=== PATIENT | female | born 1975 | race Caucasian/White ===

== ENCOUNTER 2019-05-02 21:51 | Emergency (ER) | payer MEDICARE, OTHER ==
[~2019-05-02] VITALS: Ht 149.9 cm; Wt 59.0 kg
[2019-05-02 22:05] VITALS: BP 125/77
--- NOTE | 2019-05-02 22:08 | NUR ---
TO LOBBY A/W BED AMBULATORY
--- NOTE | 2019-05-02 22:21 | NUR ---
PT AMBULATED TO BED 09
--- NOTE | 2019-05-02 22:21 | NUR ---
43 Y/O FEMALE C/O ABDOMINAL PAIN RADIATING TO THE RIGHT FLANK AND BACK. PAIN IS A 9/10 ACUTE SHARP PAIN. ABDOMEN IS SOFT AND FLAT; PAIN UPON PALPATION OF THE RIGHT UPPER AREA TO THE RIGHT FLANK. PER PATIENT, "THIS HAS BEEN HURTNG FOR A MONTH NOW, BUT IT HURTS ESPECIALLY TODAY. ABDOMINAL SOUNDS HEARD ON ALL FOUR QUADRANTS. ERMD MADE AWARE OF STATUS. SIDE RAILSX1. PMH:DIABETES; ASTHMA RX: METFORMIN; INSULIN
[2019-05-02 23:01] LABS: APPEARANCE,URINE CLEAR (CLEAR); BILIRUBIN,URINE NEGATIVE (NEGATIVE); BLOOD, URINE NEGATIVE (NEGATIVE); COLOR,URINE YELLOW (YELLOW); LEUKOCYTE ESTERASE ,URINE NEGATIVE (NEGATIVE); NITRITE, URINE NEGATIVE (NEGATIVE); UGLUCOSE 3+ (NEGATIVE)
[2019-05-02 23:01] LABS: BASOPHILS % (AUTO) 0.3 % (0.0-2.0); EOSINOPHILS # (AUTO) 0.2 K/uL (0-0.4); EOSINOPHILS % (AUTO) 3.2 % (0.0-4.0); HEMATOCRIT 44.6 % (36-48); LYMPHOCYTES # (AUTO) 2.7 K/uL (2.5-16.5); LYMPHOCYTES % (AUTO) 46.6 % (20.5-51.1); MEAN CORPUSCULAR HEMOGLOBIN 31 pg (27-31); MEAN CORPUSCULAR HGB CONC 34 g/dL (33-37); MEAN CORPUSCULAR VOLUME 92.4 fL (80-94); MONOCYTES # (AUTO) 0.5 K/uL (0.8-1.0); MONOCYTES % (AUTO) 8.6 % (1.7-9.3); NEUTROPHILS # (AUTO) 2.4 K/uL (1.8-7.7); NEUTROPHILS % (AUTO) 41.3 % (42.2-75.2); PLATELET COUNT (AUTO) 185 K/uL (140-450); RED BLOOD CELL COUNT(AUTO) 4.83 MIL/uL (4.20-5.40); RED CELL DISTRIBUTION WIDTH 13.1 % (11.6-13.7); WHITE BLOOD COUNT (AUTO) 5.8 K/uL (4.8-10.8)
[2019-05-02 23:16] LABS: RBC,URINE 0-5 /HPF (0-5); WBC,URINE 0-5 /HPF (0-5)
[2019-05-02 23:16] LABS: ALBUMIN 3.6 g/dL (3.4-5.0); ANION GAP 9.9 (8-16); CARBON DIOXIDE 32.4 mmol/L (21-32); CREATININE 0.8 mg/dL (0.6-1.3); POTASSIUM 4.3 mmol/L (3.5-5.1); TOTAL BILIRUBIN 1.1 mg/dL (0.0-1.0)
[2019-05-02] MEDS ORDERED: KETOROLAC 30 MG/ML VIAL IVP ONE (23:20)
[2019-05-02] MEDS ORDERED: INSULIN REGULAR, HUMAN 100 UNIT/ML VIAL SUBQ ONE (23:20)
[2019-05-02] MEDS ORDERED: NACL 0.9% 1,000 ML IV ONE (23:20)
--- NOTE | 2019-05-02 23:47 | NUR ---
PT. TAKEN TO CT.
--- NOTE | 2019-05-03 00:02 | NUR ---
PT BACK FROM CT
--- NOTE | 2019-05-03 00:56 | NUR ---
BLOOD SUGAR 385 MG/DL. TAMMYD MADE AWARE.
[2019-05-03 01:18] VITALS: BP 121/79
--- NOTE | 2019-05-03 01:18 | NUR ---
SUSAN OKAY TO DISCHARGE PATIENT. EDUCATED PATIENT TO CONTINUE TO TAKE HOME MEDS; DIABETES MEDICATIONS. INSTRUCTED TO TAKE LACTULOSE. Patient discharged with v/s stable. Written and verbal after care instructions given and explained. Patient alert, oriented and verbalized understanding of instructions. Ambulatory with steady gait. All questions addressed prior to discharge. ID band removed. Patient advised to follow up with PMD. Rx of given. Patient educated on indication of medication including possible reaction and side effects. Opportunity to ask questions provided and answered.
== END 2019-05-03 01:18 | disposition home or self-care (01) ==
LOC: MED 21:51
DX: K59.00 Constipation, unspecified (principal); E11.65 Type 2 diabetes mellitus with hyperglycemia; K42.9 Umbilical hernia without obstruction or gangrene; J45.909 Unspecified asthma, uncomplicated; Z90.49 Acquired absence of other specified parts of digestive tract; Z87.442 Personal history of urinary calculi; Z88.5 Allergy status to narcotic agent; Z88.6 Allergy status to analgesic agent
CPT/HCPCS: 36415; 74176; 80053; 81001; 82948; 85025; 96361; 96372; 96374; 99284; J1815; J1885; J7030

== ENCOUNTER 2020-11-17 15:27 | Emergency (ER) | payer MEDICARE, OTHER ==
[~2020-11-17] VITALS: Ht 149.9 cm; Wt 59.0 kg
[2020-11-17 15:32] VITALS: BP 105/72
--- NOTE | 2020-11-17 15:44 | NUR ---
Pt ambulated to ER bed 7 with a steady gait.
--- NOTE | 2020-11-17 15:47 | NUR ---
45 Y/O FEMALE C/O ABSCESS TO BACK OF LEFT THIGH WITH PAIN 10/10 DESCRIBES BURNING AND SHARP RADIATING TO LEFT HIP X 4 DAYS. BLOOD SUGAR 442 AT THIS TIME. PT DENIES FEVER/CHILLS. DENIES N/V. PMH: DM, ASTHMA, HLD NKA
--- NOTE | 2020-11-17 15:57 | NUR ---
LOUISE Villalta at pt bedside for further evaluation.
[2020-11-17] MEDS ORDERED: KETOROLAC 30 MG/ML VIAL IM ONE (16:00)
[2020-11-17] MEDS ORDERED: LIDOCAINE MPF 1% 10 MG/ML VIAL INJ ONE (16:00)
[2020-11-17] MEDS ORDERED: IBUP-1842 PO (16:33)
[2020-11-17] MEDS ORDERED: CEPH500C16 PO (16:33)
[2020-11-17 16:52] VITALS: BP 105/72
--- NOTE | 2020-11-17 16:53 | NUR ---
Patient discharged with v/s stable. Written and verbal after care instructions given INCISION AND DRAINAGE AFTER CARE and explained. Patient alert, oriented and verbalized understanding of instructions. Ambulatory with steady gait. All questions addressed prior to discharge. ID band removed. Patient advised to follow up with PMD. Rx of KEFLEX 500MG PO QID PO DAILY FOR 7DAYS, AND MOTRIN 400MG PO QID PRN PAIN given. Patient educated on indication of medication including possible reaction and side effects. Opportunity to ask questions provided and answered.
== END 2020-11-17 16:53 | disposition home or self-care (01) ==
LOC: MERGE 15:27 → MED 15:27
DX: L02.416 Cutaneous abscess of left lower limb (principal); J45.909 Unspecified asthma, uncomplicated; E11.9 Type 2 diabetes mellitus without complications; K21.9 Gastro-esophageal reflux disease without esophagitis; E78.00 Pure hypercholesterolemia, unspecified; Z88.5 Allergy status to narcotic agent
CPT/HCPCS: 10060; 96372; 99284; J1885; J2001

== ENCOUNTER 2020-11-19 10:55 | Emergency (ER) | payer MEDICARE, OTHER ==
[~2020-11-19] VITALS: Ht 149.9 cm; Wt 59.0 kg
[~2020-11-19 10:55] MED LIST: CEPH500C16 PO; IBUP-1842 PO
[2020-11-19 11:07] VITALS: BP 118/59
--- NOTE | 2020-11-19 11:08 | NUR ---
PATIENT AMBULATED TO BED 12
--- NOTE | 2020-11-19 11:40 | NUR ---
45 Y/O FEMALE HERE FOR RECHECK. PT STATES SHE WAS SEEN X2DAYS AGO FOR I&D PROCEDURE ABOVE LEFT THIGH. PT STATES SHE HAS BEEN TAKING PRESCRIBED ABX AND PAIN MEDICATION, TODAY PAIN IS 9/10 DESCRIBES DULL AND CRAMPING INTERMITTENT. DENIES FEVER/CHILLS, DENIES N/V. PMH: ASTHMA, DM, HLD ALLERGIES: ACETAMINOPHEN, NORCO
[2020-11-19 12:12] VITALS: BP 118/59
--- NOTE | 2020-11-19 12:12 | NUR ---
Patient discharged with v/s stable. Written and verbal after care instructions given and explained. Patient verbalized understanding. Ambulatory with steady gait. All questions addressed prior to discharge. Advised to follow up with PMD.
== END 2020-11-19 12:12 | disposition home or self-care (01) ==
LOC: MED 10:55
DX: L02.416 Cutaneous abscess of left lower limb (principal); Z90.49 Acquired absence of other specified parts of digestive tract; Z98.890 Other specified postprocedural states; Z90.710 Acquired absence of both cervix and uterus; Z88.5 Allergy status to narcotic agent; Z88.6 Allergy status to analgesic agent
CPT/HCPCS: 99281

== ENCOUNTER 2020-11-22 09:40 | Emergency (ER) | payer MEDICARE, OTHER ==
[~2020-11-22] VITALS: Ht 149.9 cm; Wt 59.0 kg
[2020-11-22 09:51] VITALS: BP 92/70
== END 2020-11-22 11:16 | disposition home or self-care (01) ==
LOC: MED 09:40
DX: L02.416 Cutaneous abscess of left lower limb (principal); J45.909 Unspecified asthma, uncomplicated; E11.9 Type 2 diabetes mellitus without complications; I10 Essential (primary) hypertension; E78.5 Hyperlipidemia, unspecified; Z79.899 Other long term (current) drug therapy; Z88.5 Allergy status to narcotic agent; Z88.6 Allergy status to analgesic agent
CPT/HCPCS: 99281

== ENCOUNTER 2022-06-22 08:26 | Emergency (ER) | payer MEDICARE, OTHER ==
[~2022-06-22] VITALS: Ht 147.3 cm; Wt 61.2 kg
[2022-06-22 08:30] VITALS: BP 134/83
--- NOTE | 2022-06-22 08:40 | NUR ---
47F PRESENTS TO ED WITH C/O RIGHT ARM, RIGHT CHEST, AND RIGHT UPPER BACK PAIN X4 DAYS. PT REPORTS A CONSTANT RIGHT UPPER BACK 9/10 PAIN RADIATING TO RIGHT SIDE OF CHEST. PT DENIES TRAUMA/INJURY, REPORTS SHE WAS GETTING OUT OF THE SHOWER 4 DAYS AGO WHEN SHE HEARD A "POP." PT REPORTS TAKING NAPROXEN AND ML-PRIM WITH NO RELIEF, DENIES TAKING TODAY. PT HAS LIMITED ROM OF RIGHT ARM UPON ASSESSMENT.
[2022-06-22] MEDS ORDERED: KETOROLAC 30 MG/ML VIAL IM ONE (08:55)
--- NOTE | 2022-06-22 08:59 | NUR ---
PT TAKEN TO XRAY VIA W/C.
[2022-06-22] MEDS ORDERED: CYCL-711 PO (09:26)
[2022-06-22] MEDS ORDERED: LID5T TP (09:26)
--- NOTE | 2022-06-22 09:42 | NUR ---
Patient discharged with v/s stable. Written and verbal after care instructions ABOUT SHOULDER IMPINGEMENT SYNDROME given and explained. Patient alert, oriented and verbalized understanding of instructions. Ambulatory with steady gait. All questions addressed prior to discharge. ID band removed. Patient advised to follow up with PMD. Rx of FLEXERIL AND LIDOCAINE PATCH given. Patient educated on indication of medication including possible reaction and side effects. Opportunity to ask questions provided and answered.
--- NOTE | 2022-06-22 10:00 | NUR ---
Poncho ortiz in [facility] - 06/22/22 at 1003 by RICHARD SWABS COLLECTED AND WALKED TO LAB.
== END 2022-06-22 09:42 | disposition home or self-care (01) ==
LOC: MED 08:26
DX: S46.811A Strain of other muscles, fascia and tendons at shoulder and upper arm level, right arm, initial encounter (principal); J45.909 Unspecified asthma, uncomplicated; I10 Essential (primary) hypertension; E11.9 Type 2 diabetes mellitus without complications; Z88.5 Allergy status to narcotic agent; Z88.6 Allergy status to analgesic agent; Z79.899 Other long term (current) drug therapy; X58.XXXA Exposure to other specified factors, initial encounter; Y93.89 Activity, other specified; Y92.89 Other specified places as the place of occurrence of the external cause; Y99.8 Other external cause status
CPT/HCPCS: 71045; 73030; 96372; 99284; J1885

== ENCOUNTER 2023-02-10 15:45 | Inpatient (IN) | payer MEDICARE, OTHER ==
[~2023-02-10] VITALS: Ht 180.3 cm; Wt 60.0 kg
[~2023-02-10 15:45] MED LIST changes: +ACET-10509 PO; +CYCL-711 PO; +LID5T TP; +ONDA-188 SL
[2023-02-10 15:56] VITALS: BP 130/76; PULSE 101; RESP 17; TEMP 97.8; O2SAT 98
[2023-02-10] MEDS ORDERED: NACL 0.9% 1,000 ML IV ONE (16:50)
[2023-02-10] MEDS ORDERED: METOCLOPRAMIDE 10 MG/2 ML INJ VIAL IVP ONE (16:50)
[2023-02-10] MEDS ORDERED: PANTOPRAZOLE 40 MG INJ VIAL IVP ONE (17:00)
[2023-02-10 18:02] LABS: ALBUMIN 3.9 g/dL (3.4-5.0); ANION GAP 14.3 (8-16); CALCIUM 9.5 mg/dL (8.5-10.1); CARBON DIOXIDE 29.4 mmol/L (21-32); CREATININE 0.7 mg/dL (0.6-1.3); POTASSIUM 4.7 mmol/L (3.5-5.1); TOTAL BILIRUBIN 2.5 mg/dL (0.0-1.0); TOTAL PROTEIN, SERUM 7.3 g/dL (6.4-8.2)
[2023-02-10 18:42] LABS: APPEARANCE,URINE CLEAR (CLEAR); BILIRUBIN,URINE 1+ (NEGATIVE); BLOOD, URINE NEGATIVE (NEGATIVE); COLOR,URINE YELLOW (YELLOW); LEUKOCYTE ESTERASE ,URINE TRACE (NEGATIVE); NITRITE, URINE NEGATIVE (NEGATIVE); PH,URINE 7.5 (5.0-9.0); PROTEIN,URINE 2+ (NEGATIVE); UGLUCOSE NEGATIVE (NEGATIVE)
[2023-02-10 18:48] LABS: BACTERIA,URINE 0-2 /HPF (None Seen); MUCUS,URINE None Seen /LPF (None Seen); RBC,URINE 0-5 /HPF (0-5); SQUAMOUS EPITHELIAL CELL,UR 0-3 (FEW) /LPF (0-3 (FEW)); WBC,URINE 0-5 /HPF (0-5); YEAST,URINE None Seen /HPF (None Seen)
[2023-02-10 18:49] LABS: ICTOTEST NEGATIVE (NEGATIVE)
[2023-02-10] MEDS ORDERED: ONDANSETRON 4 MG/2 ML VIAL IVP ONE (19:15)
[2023-02-10] MEDS ORDERED: cefTRIAXone 1,000 MG VIAL ONE (20:19)
[2023-02-10 21:07] LABS: BASOPHILS % (AUTO) 0.2 % (0.0-2.0); EOSINOPHILS % (AUTO) 0.3 % (0.0-4.0); HEMATOCRIT 44.7 % (36-48); HEMOGLOBIN 15.1 g/dL (12.0-16.0); LYMPHOCYTES # (AUTO) 0.9 K/uL (2.5-16.5); LYMPHOCYTES % (AUTO) 13.8 % (20.5-51.1); MEAN CORPUSCULAR HEMOGLOBIN 31 pg (27-31); MEAN CORPUSCULAR HGB CONC 34 g/dL (33-37); MEAN CORPUSCULAR VOLUME 90.6 fL (80-94); MONOCYTES # (AUTO) 0.3 K/uL (0.8-1.0); MONOCYTES % (AUTO) 4.4 % (1.7-9.3); NEUTROPHILS # (AUTO) 5.4 K/uL (1.8-7.7); NEUTROPHILS % (AUTO) 81.3 % (42.2-75.2); PLATELET COUNT (AUTO) 194 K/uL (140-450); RED BLOOD CELL COUNT(AUTO) 4.93 MIL/uL (4.20-5.40); RED CELL DISTRIBUTION WIDTH 12.8 % (11.6-13.7); WHITE BLOOD COUNT (AUTO) 6.6 K/uL (4.8-10.8)
[2023-02-10] MEDS ORDERED: POTASSIUM CHLORIDE 10 MEQ TABER PO PRN (21:10)
[2023-02-10] MEDS ORDERED: HYDROcodone/APAP 5/325 MG 1 TAB TAB PO PRN (21:10)
[2023-02-10] MEDS ORDERED: KCL 20 MEQ IN 100 mL PREMIX 200 ML IV PRN (21:10)
[2023-02-10] MEDS ORDERED: MAG SULF 2000 MG/WATER PREMIX 50 ML IV PRN (21:10)
[2023-02-10] MEDS ORDERED: MAGNESIUM OXIDE 400 MG TAB PO PRN (21:10)
[2023-02-10] MEDS ORDERED: HYDR-4004 PO (21:37)
[2023-02-10] MEDS ORDERED: NOVR SUBQ (21:37)
[2023-02-10] MEDS ORDERED: METF-346 PO (21:37)
[2023-02-10] MEDS ORDERED: ASPI-1822 PO (21:37)
[2023-02-10 22:50] VITALS: BP 144/95; PULSE 100; PULSE 116; PULSE 88; RESP 18; TEMP 98; O2SAT 98
[2023-02-10 23:54] VITALS: PULSE 102
[2023-02-11] MEDS: NACL 0.9% 1,000 ML IV SCH ×3 (00:57→22:28)
[2023-02-11] MEDS: ONDANSETRON 4 MG/2 ML VIAL IVP PRN ×2 (01:19→08:48)
[2023-02-11 03:53] VITALS: PULSE 108
[2023-02-11 04:00] VITALS: BP 119/58; PULSE 105; RESP 18; TEMP 98.5; O2SAT 97
[2023-02-11] MEDS: METOCLOPRAMIDE 10 MG/2 ML INJ VIAL IVP PRN ×2 (04:33→17:44)
[2023-02-11 05:12] LABS: BASOPHILS % (AUTO) 0.1 % (0.0-2.0); EOSINOPHILS % (AUTO) 0.1 % (0.0-4.0); HEMATOCRIT 39.3 % (36-48); HEMOGLOBIN 13.5 g/dL (12.0-16.0); LYMPHOCYTES # (AUTO) 1.5 K/uL (2.5-16.5); LYMPHOCYTES % (AUTO) 20.7 % (20.5-51.1); MEAN CORPUSCULAR HEMOGLOBIN 31 pg (27-31); MEAN CORPUSCULAR HGB CONC 34 g/dL (33-37); MEAN CORPUSCULAR VOLUME 90.5 fL (80-94); MONOCYTES # (AUTO) 0.5 K/uL (0.8-1.0); MONOCYTES % (AUTO) 7.2 % (1.7-9.3); NEUTROPHILS # (AUTO) 5.1 K/uL (1.8-7.7); NEUTROPHILS % (AUTO) 71.9 % (42.2-75.2); PLATELET COUNT (AUTO) 200 K/uL (140-450); RED BLOOD CELL COUNT(AUTO) 4.34 MIL/uL (4.20-5.40); RED CELL DISTRIBUTION WIDTH 12.8 % (11.6-13.7); WHITE BLOOD COUNT (AUTO) 7.1 K/uL (4.8-10.8)
[2023-02-11 05:16] LABS: MAGNESIUM 1.6 mg/dL (1.8-2.4); PHOSPHORUS 3.6 mg/dL (2.5-4.9)
[2023-02-11 05:39] LABS: ANION GAP 12.5 (8-16); CALCIUM 8.6 mg/dL (8.5-10.1); CARBON DIOXIDE 26.2 mmol/L (21-32); CREATININE 0.5 mg/dL (0.6-1.3); POTASSIUM 3.7 mmol/L (3.5-5.1)
[2023-02-11 08:00] VITALS: BP 112/69; PULSE 104; PULSE 105; RESP 17; TEMP 98.4; O2SAT 97
[2023-02-11] MEDS: DOCUSATE SODIUM 100 MG GELCAP PO SCH (09:00)
[2023-02-11 12:00] VITALS: BP 107/63; PULSE 92; RESP 17; TEMP 98.6; O2SAT 97
[2023-02-11] MEDS: ACETAMINOPHEN 325 MG TAB PO PRN (13:00)
[2023-02-11] MEDS ORDERED: INSULIN LISPRO SLIDING SCALE 100 UNITS/ML VIAL SUBQ PRN (14:00)
[2023-02-11] MEDS ORDERED: DEXTROSE 50% 50 ML SYR IVP PRN (14:00)
[2023-02-11] MEDS: INSULIN LANTUS 100 UNITS/ML 10 ML VIAL SUBQ SCH (15:06)
[2023-02-11 16:00] VITALS: BP 115/66; PULSE 83; PULSE 97; RESP 17; TEMP 98.7; O2SAT 98
[2023-02-11] MEDS: BLOOD GLUCOSE MONITORING 1 DEV DEV FS SCH ×2 (17:13→20:43)
[2023-02-11 20:00] VITALS: BP 102/54; PULSE 84; PULSE 97; RESP 18; TEMP 98; O2SAT 97
[2023-02-11] MEDS: LACTULOSE 20 GM/30 ML UDC PO SCH (20:48)
[2023-02-12] MEDS: ONDANSETRON 4 MG/2 ML VIAL IVP PRN (04:25)
[2023-02-12 05:29] LABS: ANION GAP 9.6 (8-16); CALCIUM 8.1 mg/dL (8.5-10.1); CREATININE 0.4 mg/dL (0.6-1.3); POTASSIUM 3.6 mmol/L (3.5-5.1)
[2023-02-12 05:31] LABS: BASOPHILS % (AUTO) 0.3 % (0.0-2.0); EOSINOPHILS # (AUTO) 0.1 K/uL (0-0.4); HEMATOCRIT 37.2 % (36-48); HEMOGLOBIN 12.8 g/dL (12.0-16.0); LYMPHOCYTES # (AUTO) 1.7 K/uL (2.5-16.5); LYMPHOCYTES % (AUTO) 37.9 % (20.5-51.1); MEAN CORPUSCULAR HEMOGLOBIN 31 pg (27-31); MEAN CORPUSCULAR HGB CONC 35 g/dL (33-37); MEAN CORPUSCULAR VOLUME 90.4 fL (80-94); MONOCYTES # (AUTO) 0.4 K/uL (0.8-1.0); MONOCYTES % (AUTO) 9.1 % (1.7-9.3); NEUTROPHILS # (AUTO) 2.3 K/uL (1.8-7.7); NEUTROPHILS % (AUTO) 50.7 % (42.2-75.2); PLATELET COUNT (AUTO) 160 K/uL (140-450); RED BLOOD CELL COUNT(AUTO) 4.11 MIL/uL (4.20-5.40); RED CELL DISTRIBUTION WIDTH 12.5 % (11.6-13.7); WHITE BLOOD COUNT (AUTO) 4.6 K/uL (4.8-10.8)
[2023-02-12 05:38] LABS: PHOSPHORUS 2.6 mg/dL (2.5-4.9)
[2023-02-12] MEDS: BLOOD GLUCOSE MONITORING 1 DEV DEV FS SCH ×4 (06:31→21:23)
[2023-02-12 08:00] VITALS: BP 127/80; PULSE 82; RESP 17; TEMP 98.7; O2SAT 96
[2023-02-12 08:04] VITALS: PULSE 91; RESP 20; O2SAT 97
[2023-02-12] MEDS: LACTULOSE 20 GM/30 ML UDC PO SCH ×2 (09:40→21:24)
[2023-02-12] MEDS: DOCUSATE SODIUM 100 MG GELCAP PO SCH (09:40)
[2023-02-12] MEDS: INSULIN LANTUS 100 UNITS/ML 10 ML VIAL SUBQ SCH (09:43)
[2023-02-12] MEDS: NACL 0.9% 1,000 ML IV SCH (10:40)
[2023-02-12 16:00] VITALS: BP 118/73; PULSE 80; RESP 18; TEMP 97.3; O2SAT 95
[2023-02-12 20:00] VITALS: PULSE 82; RESP 18; O2SAT 98
[2023-02-13] VITALS: BP 123/85; PULSE 84; RESP 18; TEMP 98; O2SAT 97
[2023-02-13 05:00] LABS: BASOPHILS % (AUTO) 0.3 % (0.0-2.0); EOSINOPHILS # (AUTO) 0.1 K/uL (0-0.4); HEMATOCRIT 37.4 % (36-48); HEMOGLOBIN 12.9 g/dL (12.0-16.0); LYMPHOCYTES # (AUTO) 2.1 K/uL (2.5-16.5); LYMPHOCYTES % (AUTO) 45.2 % (20.5-51.1); MEAN CORPUSCULAR HEMOGLOBIN 31 pg (27-31); MEAN CORPUSCULAR HGB CONC 34 g/dL (33-37); MONOCYTES # (AUTO) 0.4 K/uL (0.8-1.0); MONOCYTES % (AUTO) 9.5 % (1.7-9.3); PLATELET COUNT (AUTO) 173 K/uL (140-450); RED CELL DISTRIBUTION WIDTH 12.8 % (11.6-13.7); WHITE BLOOD COUNT (AUTO) 4.7 K/uL (4.8-10.8)
[2023-02-13 05:20] LABS: ANION GAP 10.3 (8-16); CALCIUM 8.5 mg/dL (8.5-10.1); CARBON DIOXIDE 26.5 mmol/L (21-32); CREATININE 0.5 mg/dL (0.6-1.3); POTASSIUM 3.8 mmol/L (3.5-5.1)
[2023-02-13 05:25] LABS: MAGNESIUM 1.8 mg/dL (1.8-2.4); PHOSPHORUS 3.3 mg/dL (2.5-4.9)
[2023-02-13] MEDS: ACETAMINOPHEN 325 MG TAB PO PRN (06:33)
[2023-02-13] MEDS: NACL 0.9% 1,000 ML IV SCH ×2 (06:34→11:40)
[2023-02-13] MEDS: BLOOD GLUCOSE MONITORING 1 DEV DEV FS SCH ×2 (06:36→11:03)
[2023-02-13 08:00] VITALS: BP 121/76; PULSE 82; RESP 17; RESP 20; TEMP 97.3; O2SAT 97
[2023-02-13] MEDS: LACTULOSE 20 GM/30 ML UDC PO SCH (08:53)
[2023-02-13] MEDS: DOCUSATE SODIUM 100 MG GELCAP PO SCH (08:53)
[2023-02-13] MEDS: INSULIN LANTUS 100 UNITS/ML 10 ML VIAL SUBQ SCH (09:17)
[2023-02-13] MEDS ORDERED: INSU10SU6 SUBQ (13:07)
[2023-02-13] MEDS ORDERED: ONDA-188 PO (13:07)
[2023-02-13] MEDS ORDERED: LACT-85 PO (13:10)
== END 2023-02-13 14:25 | disposition home or self-care (01) | DRG 690 ==
LOC: MED 15:45 → MTU 21:13 → OBSVTOIN 02-12 11:34
PROVIDERS: ADMIT Student in an Organized Health Care Education/Training Program; ATTEND Student in an Organized Health Care Education/Training Program
DX: N39.0 Urinary tract infection, site not specified (principal); E87.20 Acidosis, unspecified; D84.9 Immunodeficiency, unspecified; K59.00 Constipation, unspecified; J45.909 Unspecified asthma, uncomplicated; E11.65 Type 2 diabetes mellitus with hyperglycemia; E86.1 Hypovolemia; Z88.6 Allergy status to analgesic agent; Z88.5 Allergy status to narcotic agent; Z79.899 Other long term (current) drug therapy
CPT/HCPCS: 96361; 96365; 96375; 99285; G0378; 36415; 80048; 80053; 81001; 82009; 82948; 83690; 83735; 84100; 85025; 87081; C9113; J0696; J1644; J1815; J2405; J2765; J3475

== ENCOUNTER 2023-02-20 13:21 | Observation (INO) | payer MEDICARE, OTHER ==
[~2023-02-20] VITALS: Ht 149.9 cm; Wt 59.0 kg
[~2023-02-20 13:21] MED LIST changes: -ACET-10509 PO; +ASPI-1822 PO; -CEPH500C16 PO; -CYCL-711 PO; +HYDR-4004 PO; -IBUP-1842 PO; +INSU10SU6 SUBQ; +LACT-85 PO; -LID5T TP; +METF-346 PO; +ONDA-188 PO; -ONDA-188 SL
[2023-02-20 13:27] VITALS: BP 129/80; PULSE 98; RESP 14; TEMP 98.1; O2SAT 99
[2023-02-20] MEDS ORDERED: ONDANSETRON 4 MG ODT PO ONE (14:15)
[2023-02-20] MEDS ORDERED: NACL 0.9% 1,000 ML IV ONE ×2 (14:40→15:35)
[2023-02-20] MEDS ORDERED: METOCLOPRAMIDE 10 MG/2 ML INJ VIAL IVP ONE (15:35)
[2023-02-20 16:03] LABS: BASOPHILS % (AUTO) 0.1 % (0.0-2.0); EOSINOPHILS % (AUTO) 0.2 % (0.0-4.0); HEMATOCRIT 48.1 % (36-48); HEMOGLOBIN 16.3 g/dL (12.0-16.0); LYMPHOCYTES % (AUTO) 13.8 % (20.5-51.1); MEAN CORPUSCULAR HEMOGLOBIN 31 pg (27-31); MEAN CORPUSCULAR HGB CONC 34 g/dL (33-37); MEAN CORPUSCULAR VOLUME 90.9 fL (80-94); MONOCYTES # (AUTO) 0.2 K/uL (0.8-1.0); MONOCYTES % (AUTO) 3.4 % (1.7-9.3); NEUTROPHILS % (AUTO) 82.5 % (42.2-75.2); PLATELET COUNT (AUTO) 258 K/uL (140-450); RED BLOOD CELL COUNT(AUTO) 5.29 MIL/uL (4.20-5.40); RED CELL DISTRIBUTION WIDTH 13.3 % (11.6-13.7); WHITE BLOOD COUNT (AUTO) 7.2 K/uL (4.8-10.8)
[2023-02-20 16:42] LABS: ALANINE AMINOTRANSFERASE 59 U/L (12-78); ALBUMIN 4.4 g/dL (3.4-5.0); ALKALINE PHOSPHATASE 93 U/L (50-136); ANION GAP 17.3 (8-16); ASPARTATE AMINOTRANSFERASE 41 U/L (15-37); CALCIUM 10.3 mg/dL (8.5-10.1); CARBON DIOXIDE 25.6 mmol/L (21-32); CHLORIDE 101 mmol/L (98-107); CREATININE 0.8 mg/dL (0.6-1.3); GFR ARICAN-AMERICAN 98 mL/min (>90); GFR NON ARICAN-AMERICAN 81 mL/min (>90); GLUCOSE 238 mg/dL (74-106); LIPASE 242 U/L (73-393); POTASSIUM 3.9 mmol/L (3.5-5.1); SODIUM SERUM 140 mmol/L (136-145); TOTAL BILIRUBIN 2.1 mg/dL (0.0-1.0); TOTAL PROTEIN, SERUM 8.6 g/dL (6.4-8.2); UREA NITROGEN, BLOOD 13 mg/dL (7-18)
[2023-02-20 18:25] LABS: APPEARANCE,URINE SL CLOUDY (CLEAR); BILIRUBIN,URINE 1+ (NEGATIVE); BLOOD, URINE NEGATIVE (NEGATIVE); COLOR,URINE YELLOW (YELLOW); LEUKOCYTE ESTERASE ,URINE TRACE (NEGATIVE); NITRITE, URINE NEGATIVE (NEGATIVE); PROTEIN,URINE 2+ (NEGATIVE); UGLUCOSE TRACE (NEGATIVE)
[2023-02-20 18:40] LABS: BACTERIA,URINE 1+ /HPF (None Seen); SQUAMOUS EPITHELIAL CELL,UR 4-10 (MOD) /LPF (0-3 (FEW)); WBC,URINE 0-5 /HPF (0-5)
[2023-02-20] MEDS ORDERED: ONDA-188 PO (18:53)
[2023-02-20] MEDS ORDERED: ONDANSETRON 4 MG/2 ML VIAL IVP ONE ×2 (18:55→22:10)
[2023-02-20 19:45] VITALS: O2SAT 95
[2023-02-20 21:40] LABS: BLOOD GAS PH 7.392 (7.35-7.45)
[2023-02-20 21:41] LABS: BLOOD GAS BASE EXCESS -3.1 mmol/L (-2.0-2.0); BLOOD GAS HCO3 21.2 mmol/L (22-26); BLOOD GAS PCO2 35.7 mmHg (35-45); BLOOD GAS PO2 74.3 mmHg (75-100)
[2023-02-20 21:45] VITALS: O2SAT 95
[2023-02-20] MEDS ORDERED: ACETAMINOPHEN 325 MG TAB PO PRN (22:25)
[2023-02-20] MEDS ORDERED: ZOLPIDEM 5 MG TAB PO PRN (22:25)
[2023-02-20] MEDS ORDERED: HYDROcodone/APAP 5/325 MG 1 TAB TAB PO PRN (22:25)
[2023-02-20] MEDS ORDERED: LORazepam 1 MG TAB PO PRN (22:25)
[2023-02-20] MEDS ORDERED: MAGNESIUM OXIDE 400 MG TAB PO PRN (22:25)
[2023-02-20] MEDS ORDERED: ONDANSETRON 4 MG/2 ML VIAL IVP PRN (22:25)
[2023-02-20] MEDS ORDERED: POTASSIUM CHLORIDE 10 MEQ TABER PO PRN (22:25)
[2023-02-20] MEDS ORDERED: KCL 20 MEQ IN 100 mL PREMIX 200 ML IV PRN (22:25)
[2023-02-20] MEDS ORDERED: MAG SULF 2000 MG/WATER PREMIX 50 ML IV PRN (22:25)
[2023-02-20] MEDS ORDERED: INSULIN LISPRO SLIDING SCALE 100 UNITS/ML VIAL SUBQ PRN (22:35)
[2023-02-20] MEDS ORDERED: INSULIN LANTUS 100 UNITS/ML 10 ML VIAL SUBQ SCH (22:35)
[2023-02-20] MEDS ORDERED: DEXTROSE 50% 50 ML SYR IVP PRN (22:35)
[2023-02-20 23:09] VITALS: BP 117/52; PULSE 112; PULSE 114; RESP 18; TEMP 97.7; O2SAT 96
[2023-02-21] MEDS: POTASSIUM CHL 20 MEQ/NACL 0.9% 1,000 ML IV SCH ×3 (01:30→14:10)
[2023-02-21 04:00] VITALS: BP 107/51; PULSE 101; PULSE 106; RESP 18; TEMP 98.8; O2SAT 96
[2023-02-21 06:41] LABS: ALBUMIN 3.3 g/dL (3.4-5.0); ANION GAP 12.8 (8-16); CALCIUM 8.6 mg/dL (8.5-10.1); CREATININE 0.6 mg/dL (0.6-1.3); MAGNESIUM 1.8 mg/dL (1.8-2.4); POTASSIUM 3.8 mmol/L (3.5-5.1); TOTAL BILIRUBIN 1.6 mg/dL (0.0-1.0); TOTAL PROTEIN, SERUM 6.4 g/dL (6.4-8.2)
[2023-02-21 06:45] LABS: BASOPHILS % (AUTO) 0.3 % (0.0-2.0); EOSINOPHILS % (AUTO) 0.1 % (0.0-4.0); HEMATOCRIT 38.2 % (36-48); HEMOGLOBIN 12.9 g/dL (12.0-16.0); LYMPHOCYTES # (AUTO) 1.1 K/uL (2.5-16.5); LYMPHOCYTES % (AUTO) 18.1 % (20.5-51.1); MEAN CORPUSCULAR HEMOGLOBIN 31 pg (27-31); MEAN CORPUSCULAR HGB CONC 34 g/dL (33-37); MEAN CORPUSCULAR VOLUME 90.2 fL (80-94); MONOCYTES # (AUTO) 0.6 K/uL (0.8-1.0); MONOCYTES % (AUTO) 9.5 % (1.7-9.3); NEUTROPHILS # (AUTO) 4.5 K/uL (1.8-7.7); PLATELET COUNT (AUTO) 214 K/uL (140-450); RED BLOOD CELL COUNT(AUTO) 4.23 MIL/uL (4.20-5.40); RED CELL DISTRIBUTION WIDTH 13.3 % (11.6-13.7); WHITE BLOOD COUNT (AUTO) 6.3 K/uL (4.8-10.8)
[2023-02-21] MEDS: BLOOD GLUCOSE MONITORING 1 DEV DEV FS SCH ×3 (06:49→16:05)
[2023-02-21 08:00] VITALS: BP 132/65; PULSE 101; PULSE 95; RESP 18; TEMP 97.7; O2SAT 100; O2SAT 96
[2023-02-21] MEDS ORDERED: PROCHLORPERAZINE 10 MG/2 ML VIAL IVP PRN (08:50)
[2023-02-21] MEDS ORDERED: ENOXAPARIN 40 MG/0.4 ML SYR SUBQ SCH (09:00)
[2023-02-21] MEDS ORDERED: DOCUSATE SODIUM 100 MG GELCAP PO SCH (09:00)
[2023-02-21] MEDS ORDERED: PANTOPRAZOLE 40 MG INJ VIAL IVP SCH ×2 (09:00→10:32)
[2023-02-21] MEDS ORDERED: ASPIRIN 81 MG TAB.CHEW PO SCH (09:00)
[2023-02-21 11:48] VITALS: O2SAT 98
[2023-02-21 12:00] VITALS: BP 110/61; PULSE 81; PULSE 83; RESP 18; TEMP 98.1; O2SAT 98
[2023-02-21] MEDS ORDERED: PROCHLORPERAZINE 10 MG/2 ML VIAL IVP SCH (12:00)
[2023-02-21 16:00] VITALS: BP 108/54; PULSE 83; PULSE 87; RESP 18; TEMP 98.8; O2SAT 99
[2023-02-21] MEDS ORDERED: PROC-87 PO (16:19)
[2023-02-21] MEDS ORDERED: PANT20EC18 PO (16:19)
[2023-02-21 16:36] VITALS: BP 108/54; PULSE 83; RESP 18; TEMP 98.8
== END 2023-02-21 17:15 | disposition home or self-care (01) ==
LOC: MED 13:21 → MTU 22:32
PROVIDERS: ADMIT Internal Medicine; ATTEND Internal Medicine
DX: R11.2 Nausea with vomiting, unspecified (principal); R10.9 Unspecified abdominal pain; E86.0 Dehydration; J45.909 Unspecified asthma, uncomplicated; E11.65 Type 2 diabetes mellitus with hyperglycemia; E83.52 Hypercalcemia; R74.01 Elevation of levels of liver transaminase levels; E80.6 Other disorders of bilirubin metabolism; Z85.42 Personal history of malignant neoplasm of other parts of uterus; Z79.899 Other long term (current) drug therapy
CPT/HCPCS: 36415; 36600; 71045; 74150; 80053; 81001; 82009; 82803; 82948; 83690; 83735; 84484; 84703; 85025; 87081; 93005; 94760; 96361; 96372; 96374; 96375; 96376; 99285; C9113; G0378; J0780; J1650; J1815; J2405; J2765; J7030; Q0162

== ENCOUNTER 2023-02-27 10:48 | Inpatient (IN) | payer MEDICARE, OTHER ==
[~2023-02-27] VITALS: Ht 149.9 cm; Wt 100.7 kg
[~2023-02-27 10:48] MED LIST changes: -HYDR-4004 PO; -ONDA-188 PO; +PANT20EC18 PO; +PROC-87 PO
[2023-02-27 10:59] VITALS: BP 137/83; PULSE 98; RESP 16; TEMP 97; O2SAT 99
[2023-02-27] MEDS ORDERED: KETOROLAC 30 MG/ML VIAL IVP ONE (11:50)
[2023-02-27] MEDS ORDERED: ONDANSETRON 4 MG/2 ML VIAL IVP ONE ×2 (11:50→16:55)
[2023-02-27] MEDS ORDERED: PANTOPRAZOLE 40 MG INJ VIAL IVP ONE (11:50)
[2023-02-27 12:24] LABS: BASOPHILS % (AUTO) 0.2 % (0.0-2.0); EOSINOPHILS % (AUTO) 0.2 % (0.0-4.0); HEMATOCRIT 45.9 % (36-48); HEMOGLOBIN 15.9 g/dL (12.0-16.0); LYMPHOCYTES # (AUTO) 1.5 K/uL (2.5-16.5); LYMPHOCYTES % (AUTO) 19.9 % (20.5-51.1); MEAN CORPUSCULAR HEMOGLOBIN 31 pg (27-31); MEAN CORPUSCULAR HGB CONC 35 g/dL (33-37); MEAN CORPUSCULAR VOLUME 89.7 fL (80-94); MONOCYTES # (AUTO) 0.7 K/uL (0.8-1.0); MONOCYTES % (AUTO) 9.4 % (1.7-9.3); NEUTROPHILS # (AUTO) 5.2 K/uL (1.8-7.7); NEUTROPHILS % (AUTO) 70.3 % (42.2-75.2); PLATELET COUNT (AUTO) 295 K/uL (140-450); RED BLOOD CELL COUNT(AUTO) 5.11 MIL/uL (4.20-5.40); RED CELL DISTRIBUTION WIDTH 13.3 % (11.6-13.7); WHITE BLOOD COUNT (AUTO) 7.4 K/uL (4.8-10.8)
[2023-02-27 12:39] LABS: APPEARANCE,URINE CLEAR (CLEAR); BILIRUBIN,URINE NEGATIVE (NEGATIVE); BLOOD, URINE NEGATIVE (NEGATIVE); COLOR,URINE YELLOW (YELLOW); LEUKOCYTE ESTERASE ,URINE 1+ (NEGATIVE); NITRITE, URINE NEGATIVE (NEGATIVE); PH,URINE 6.5 (5.0-9.0); PROTEIN,URINE NEGATIVE (NEGATIVE); UGLUCOSE NEGATIVE (NEGATIVE)
[2023-02-27 12:50] LABS: AMPHETAMINE, URINE NEGATIVE ng/ml (NEG <=1000); BARBITURATE, URINE NEGATIVE ng/ml (NEG <=200); BENZODIAZEPINE, URINE NEGATIVE ng/mL (NEG <=200); CANNABINOID, URINE NEGATIVE ng/mL (NEG <=50); COCAINE, URINE NEGATIVE ng/mL (NEG <=300); OPIATE, URINE NEGATIVE ng/mL (NEG <=2000); PHENCYCLIDINE SCREEN,URINE NEGATIVE ng/mL (NEG <=25)
[2023-02-27 12:58] LABS: BACTERIA,URINE 1+ /HPF (None Seen); RBC,URINE 0-5 /HPF (0-5); WBC,URINE 0-5 /HPF (0-5)
[2023-02-27 13:01] LABS: ALANINE AMINOTRANSFERASE 42 U/L (12-78); ALBUMIN 4.3 g/dL (3.4-5.0); ALKALINE PHOSPHATASE 77 U/L (50-136); ANION GAP 10.6 (8-16); ASPARTATE AMINOTRANSFERASE 21 U/L (15-37); CALCIUM 10.2 mg/dL (8.5-10.1); CARBON DIOXIDE 32.9 mmol/L (21-32); CHLORIDE 99 mmol/L (98-107); CREATININE 0.7 mg/dL (0.6-1.3); GFR ARICAN-AMERICAN 114 mL/min (>90); GFR NON ARICAN-AMERICAN 95 mL/min (>90); GLUCOSE 184 mg/dL (74-106); LIPASE 109 U/L (16-77); POTASSIUM 3.5 mmol/L (3.5-5.1); SODIUM SERUM 139 mmol/L (136-145); TOTAL BILIRUBIN 2.6 mg/dL (0.0-1.0); UREA NITROGEN, BLOOD 14 mg/dL (7-18)
[2023-02-27] MEDS: ALUMINUM HYD/MAG/SIMETHICONE 30 ML UDC PO ONE ×2 (14:10→15:00)
[2023-02-27] MEDS: ACETAMINOPHEN EXTRA STRENGTH 500 MG TAB PO ONE ×2 (14:10→15:02)
[2023-02-27] MEDS ORDERED: DICYCLOMINE HCL LIQUID 10 MG/5 ML UDC PO ONE (14:10)
[2023-02-27] MEDS ORDERED: HALOPERIDOL IM 5 MG/ML VIAL IVP ONE (14:55)
[2023-02-27] MEDS ORDERED: HYDR12.51 PO (17:30)
[2023-02-27] MEDS ORDERED: LISI2.5T14 PO (17:30)
[2023-02-27] MEDS ORDERED: ASPI-1822 PO (17:34)
[2023-02-27] MEDS ORDERED: ALUMINUM HYD/MAG/SIMETHICONE 30 ML UDC ONE (18:19)
[2023-02-27] MEDS ORDERED: ACETAMINOPHEN EXTRA STRENGTH 500 MG TAB ONE (18:19)
[2023-02-27] MEDS ORDERED: ZOLPIDEM 5 MG TAB PO PRN (18:40)
[2023-02-27] MEDS ORDERED: LORazepam 1 MG TAB PO PRN (18:40)
[2023-02-27] MEDS ORDERED: ACETAMINOPHEN 325 MG TAB PO PRN (18:40)
[2023-02-27] MEDS ORDERED: POTASSIUM CHLORIDE 10 MEQ TABER PO PRN (18:40)
[2023-02-27] MEDS ORDERED: MAG SULF 2000 MG/WATER PREMIX 50 ML IV PRN (18:40)
[2023-02-27] MEDS ORDERED: HYDROcodone/APAP 5/325 MG 1 TAB TAB PO PRN (18:40)
[2023-02-27] MEDS: DEXT 5% /NACL 0.9% 1,000 ML IV SCH (19:17)
[2023-02-27 20:25] VITALS: BP 142/84; PULSE 91; RESP 16; TEMP 98.2; O2SAT 96
[2023-02-27 20:30] VITALS: PULSE 91; RESP 16; O2SAT 97
[2023-02-27] MEDS: MORPHINE SULFATE 4 MG/ML SYR IVP PRN (21:47)
[2023-02-28] MEDS: METOCLOPRAMIDE 10 MG/2 ML INJ VIAL IVP SCH ×4 (00:21→17:36)
[2023-02-28 04:00] VITALS: BP 117/67; PULSE 86; RESP 16; TEMP 97; O2SAT 96
[2023-02-28] MEDS: ONDANSETRON 4 MG/2 ML VIAL IVP PRN ×2 (04:54→19:42)
[2023-02-28 07:21] LABS: BASOPHILS % (AUTO) 0.1 % (0.0-2.0); EOSINOPHILS % (AUTO) 0.7 % (0.0-4.0); HEMATOCRIT 40.9 % (36-48); LYMPHOCYTES # (AUTO) 1.2 K/uL (2.5-16.5); LYMPHOCYTES % (AUTO) 17.5 % (20.5-51.1); MEAN CORPUSCULAR HEMOGLOBIN 31 pg (27-31); MEAN CORPUSCULAR HGB CONC 34 g/dL (33-37); MEAN CORPUSCULAR VOLUME 89.7 fL (80-94); MONOCYTES # (AUTO) 0.7 K/uL (0.8-1.0); NEUTROPHILS # (AUTO) 4.7 K/uL (1.8-7.7); NEUTROPHILS % (AUTO) 70.7 % (42.2-75.2); PLATELET COUNT (AUTO) 218 K/uL (140-450); RED BLOOD CELL COUNT(AUTO) 4.56 MIL/uL (4.20-5.40); RED CELL DISTRIBUTION WIDTH 13.6 % (11.6-13.7); WHITE BLOOD COUNT (AUTO) 6.6 K/uL (4.8-10.8)
[2023-02-28 08:00] VITALS: BP 113/60; PULSE 84; RESP 16; TEMP 97.6; O2SAT 98
[2023-02-28 08:05] LABS: ANION GAP 11.4 (8-16); CARBON DIOXIDE 29.6 mmol/L (21-32); CREATININE 0.7 mg/dL (0.6-1.3)
[2023-02-28] MEDS: DEXT 5% /NACL 0.9% 1,000 ML IV SCH (08:52)
[2023-02-28] MEDS: ENOXAPARIN 40 MG/0.4 ML SYR SUBQ SCH (09:01)
[2023-02-28 09:20] VITALS: PULSE 84; RESP 16; O2SAT 98
[2023-02-28] MEDS ORDERED: DEXTROSE 50% 50 ML SYR IVP PRN (10:50)
[2023-02-28] MEDS: KCL 20 MEQ IN 100 mL PREMIX 200 ML IV PRN (11:26)
[2023-02-28] MEDS: INSULIN LISPRO SLIDING SCALE 100 UNITS/ML VIAL SUBQ PRN ×2 (11:33→20:18)
[2023-02-28] MEDS: BLOOD GLUCOSE MONITORING 1 DEV DEV FS SCH ×3 (11:34→20:17)
[2023-02-28] MEDS ORDERED: DOCUSATE SODIUM 100 MG GELCAP PO SCH (12:30)
[2023-02-28] MEDS: TAMSULOSIN 0.4 MG CAP PO SCH (14:18)
[2023-02-28 16:00] VITALS: BP 147/76; PULSE 81; RESP 18; TEMP 97.1; O2SAT 95
[2023-02-28 20:00] VITALS: BP 130/70; PULSE 88; RESP 18; TEMP 98.5; O2SAT 95
[2023-02-28] MEDS: DOCUSATE SODIUM 100 MG GELCAP PO SCH (20:17)
[2023-03-01] MEDS: METOCLOPRAMIDE 10 MG/2 ML INJ VIAL IVP SCH ×4 (00:43→17:51)
[2023-03-01] MEDS: MORPHINE SULFATE 4 MG/ML SYR IVP PRN (01:39)
[2023-03-01 04:04] VITALS: BP 127/74; PULSE 89; RESP 16; TEMP 97.9; O2SAT 99
[2023-03-01] MEDS: BLOOD GLUCOSE MONITORING 1 DEV DEV FS SCH ×4 (06:33→20:38)
[2023-03-01 07:01] LABS: BASOPHILS % (AUTO) 0.3 % (0.0-2.0); EOSINOPHILS % (AUTO) 0.7 % (0.0-4.0); HEMATOCRIT 38.8 % (36-48); HEMOGLOBIN 13.5 g/dL (12.0-16.0); LYMPHOCYTES # (AUTO) 1.5 K/uL (2.5-16.5); LYMPHOCYTES % (AUTO) 30.9 % (20.5-51.1); MEAN CORPUSCULAR HEMOGLOBIN 31 pg (27-31); MEAN CORPUSCULAR HGB CONC 35 g/dL (33-37); MEAN CORPUSCULAR VOLUME 88.4 fL (80-94); MONOCYTES # (AUTO) 0.5 K/uL (0.8-1.0); MONOCYTES % (AUTO) 9.2 % (1.7-9.3); NEUTROPHILS # (AUTO) 2.9 K/uL (1.8-7.7); NEUTROPHILS % (AUTO) 58.9 % (42.2-75.2); PLATELET COUNT (AUTO) 207 K/uL (140-450); RED BLOOD CELL COUNT(AUTO) 4.39 MIL/uL (4.20-5.40); RED CELL DISTRIBUTION WIDTH 13.3 % (11.6-13.7)
[2023-03-01 07:04] LABS: ANION GAP 10.7 (8-16); CALCIUM 8.8 mg/dL (8.5-10.1); CARBON DIOXIDE 27.1 mmol/L (21-32); CREATININE 0.6 mg/dL (0.6-1.3)
[2023-03-01 07:19] LABS: POTASSIUM 2.8 mmol/L (3.5-5.1)
[2023-03-01 08:00] VITALS: RESP 18; O2SAT 95
[2023-03-01] MEDS: TAMSULOSIN 0.4 MG CAP PO SCH (09:32)
[2023-03-01] MEDS: DOCUSATE SODIUM 100 MG GELCAP PO SCH ×2 (09:35→20:38)
[2023-03-01] MEDS: ENOXAPARIN 40 MG/0.4 ML SYR SUBQ SCH (09:36)
[2023-03-01] MEDS: POLYETHYLENE GLYCOL 17 GM/PKT PO PRN (09:37)
[2023-03-01] MEDS: ONDANSETRON 4 MG/2 ML VIAL IVP PRN (10:09)
[2023-03-01] MEDS: INSULIN LISPRO SLIDING SCALE 100 UNITS/ML VIAL SUBQ PRN ×2 (11:19→20:38)
[2023-03-01] MEDS ORDERED: bisacodyL 10 MG SUPP RC PRN (12:00)
[2023-03-01] MEDS: cephALEXin 500 MG CAP PO SCH ×2 (12:00→17:14)
[2023-03-01] MEDS ORDERED: POTASSIUM CHLORIDE 40 MEQ, LIDOCAINE 1% 25 MG in NACL 0.9% 250 ML IV ONE (12:30)
[2023-03-01 16:00] VITALS: O2SAT 100
[2023-03-01 17:39] VITALS: BP 116/82; PULSE 101; RESP 19; TEMP 98; O2SAT 98
[2023-03-01 20:00] VITALS: BP 139/90; PULSE 99; RESP 18; TEMP 98.1; O2SAT 98
[2023-03-02] MEDS: METOCLOPRAMIDE 10 MG/2 ML INJ VIAL IVP SCH ×5 (00:05→23:04)
[2023-03-02] MEDS: cephALEXin 500 MG CAP PO SCH ×5 (05:32→23:03)
[2023-03-02] MEDS: INSULIN LISPRO SLIDING SCALE 100 UNITS/ML VIAL SUBQ PRN ×4 (06:31→20:10)
[2023-03-02] MEDS: BLOOD GLUCOSE MONITORING 1 DEV DEV FS SCH ×4 (06:32→20:09)
[2023-03-02 07:18] LABS: ANION GAP 10.5 (8-16); CALCIUM 9.3 mg/dL (8.5-10.1); CARBON DIOXIDE 30.2 mmol/L (21-32); CREATININE 0.6 mg/dL (0.6-1.3); POTASSIUM 3.7 mmol/L (3.5-5.1)
[2023-03-02 08:00] VITALS: BP 120/68; PULSE 88; RESP 18; TEMP 98.4; O2SAT 100; O2SAT 98
[2023-03-02 08:23] LABS: BASOPHILS % (AUTO) 0.1 % (0.0-2.0); EOSINOPHILS % (AUTO) 0.4 % (0.0-4.0); HEMOGLOBIN 14.1 g/dL (12.0-16.0); LYMPHOCYTES # (AUTO) 1.1 K/uL (2.5-16.5); MEAN CORPUSCULAR HEMOGLOBIN 31 pg (27-31); MEAN CORPUSCULAR HGB CONC 35 g/dL (33-37); MEAN CORPUSCULAR VOLUME 87.8 fL (80-94); MONOCYTES # (AUTO) 0.4 K/uL (0.8-1.0); MONOCYTES % (AUTO) 6.6 % (1.7-9.3); NEUTROPHILS # (AUTO) 4.1 K/uL (1.8-7.7); NEUTROPHILS % (AUTO) 73.9 % (42.2-75.2); PLATELET COUNT (AUTO) 207 K/uL (140-450); RED BLOOD CELL COUNT(AUTO) 4.56 MIL/uL (4.20-5.40); RED CELL DISTRIBUTION WIDTH 13.1 % (11.6-13.7); WHITE BLOOD COUNT (AUTO) 5.5 K/uL (4.8-10.8)
[2023-03-02] MEDS: TAMSULOSIN 0.4 MG CAP PO SCH (09:30)
[2023-03-02] MEDS: DOCUSATE SODIUM 100 MG GELCAP PO SCH ×2 (09:30→20:10)
[2023-03-02] MEDS: ENOXAPARIN 40 MG/0.4 ML SYR SUBQ SCH (09:31)
[2023-03-02 16:00] VITALS: BP 104/64; PULSE 100; RESP 18; TEMP 98.4; O2SAT 98
[2023-03-02 20:00] VITALS: RESP 18; O2SAT 99
[2023-03-03 04:00] VITALS: BP 110/61; PULSE 67; RESP 18; TEMP 98.2; O2SAT 99
[2023-03-03] MEDS: METOCLOPRAMIDE 10 MG/2 ML INJ VIAL IVP SCH ×3 (05:51→17:34)
[2023-03-03] MEDS: cephALEXin 500 MG CAP PO SCH ×3 (05:51→18:00)
[2023-03-03] MEDS: MORPHINE SULFATE 4 MG/ML SYR IVP PRN (05:52)
[2023-03-03] MEDS: BLOOD GLUCOSE MONITORING 1 DEV DEV FS SCH ×4 (06:36→22:06)
[2023-03-03 07:11] LABS: BASOPHILS % (AUTO) 0.2 % (0.0-2.0); EOSINOPHILS # (AUTO) 0.1 K/uL (0-0.4); EOSINOPHILS % (AUTO) 1.4 % (0.0-4.0); HEMATOCRIT 40.6 % (36-48); HEMOGLOBIN 14.3 g/dL (12.0-16.0); LYMPHOCYTES % (AUTO) 40.6 % (20.5-51.1); MEAN CORPUSCULAR HEMOGLOBIN 31 pg (27-31); MEAN CORPUSCULAR HGB CONC 35 g/dL (33-37); MEAN CORPUSCULAR VOLUME 88.1 fL (80-94); MONOCYTES # (AUTO) 0.5 K/uL (0.8-1.0); MONOCYTES % (AUTO) 10.9 % (1.7-9.3); NEUTROPHILS # (AUTO) 2.3 K/uL (1.8-7.7); NEUTROPHILS % (AUTO) 46.9 % (42.2-75.2); PLATELET COUNT (AUTO) 193 K/uL (140-450); RED BLOOD CELL COUNT(AUTO) 4.61 MIL/uL (4.20-5.40); RED CELL DISTRIBUTION WIDTH 13.8 % (11.6-13.7)
[2023-03-03 07:53] LABS: CALCIUM 9.4 mg/dL (8.5-10.1); CREATININE 0.6 mg/dL (0.6-1.3)
[2023-03-03 08:00] VITALS: RESP 18; O2SAT 99
[2023-03-03] MEDS: DOCUSATE SODIUM 100 MG GELCAP PO SCH ×2 (08:53→21:00)
[2023-03-03] MEDS: TAMSULOSIN 0.4 MG CAP PO SCH (08:53)
[2023-03-03] MEDS: ENOXAPARIN 40 MG/0.4 ML SYR SUBQ SCH (08:56)
[2023-03-03] MEDS: POLYETHYLENE GLYCOL 17 GM/PKT PO PRN (09:03)
[2023-03-03] MEDS: DULoxetine 30 MG CAPDR PO SCH (10:26)
[2023-03-03] MEDS: INSULIN LISPRO SLIDING SCALE 100 UNITS/ML VIAL SUBQ PRN ×3 (11:43→22:09)
[2023-03-03 14:20] VITALS: O2SAT 99
[2023-03-03 16:00] VITALS: BP 111/62; PULSE 97; RESP 20; TEMP 97; O2SAT 98
[2023-03-03] MEDS: KCL 20 MEQ IN 100 mL PREMIX 200 ML IV PRN (19:23)
[2023-03-03 20:00] VITALS: RESP 18; O2SAT 99
[2023-03-04] VITALS: BP 120/60; PULSE 70; RESP 18; TEMP 98; O2SAT 98
[2023-03-04] MEDS: METOCLOPRAMIDE 10 MG/2 ML INJ VIAL IVP SCH ×4 (01:06→17:48)
[2023-03-04] MEDS: cephALEXin 500 MG CAP PO SCH ×4 (06:00→17:49)
[2023-03-04 06:43] LABS: BASOPHILS % (AUTO) 0.1 % (0.0-2.0); NEUTROPHILS # (AUTO) 4.3 K/uL (1.8-7.7); RED CELL DISTRIBUTION WIDTH 13.6 % (11.6-13.7); WHITE BLOOD COUNT (AUTO) 5.6 K/uL (4.8-10.8)
[2023-03-04] MEDS: BLOOD GLUCOSE MONITORING 1 DEV DEV FS SCH ×4 (06:46→22:24)
[2023-03-04 06:47] LABS: EOSINOPHILS % (AUTO) 0.8 % (0.0-4.0); HEMATOCRIT 47.1 % (36-48); HEMOGLOBIN 16.5 g/dL (12.0-16.0); LYMPHOCYTES # (AUTO) 0.7 K/uL (2.5-16.5); LYMPHOCYTES % (AUTO) 11.8 % (20.5-51.1); MEAN CORPUSCULAR HEMOGLOBIN 31 pg (27-31); MEAN CORPUSCULAR HGB CONC 35 g/dL (33-37); MONOCYTES # (AUTO) 0.6 K/uL (0.8-1.0); MONOCYTES % (AUTO) 10.8 % (1.7-9.3); NEUTROPHILS % (AUTO) 76.5 % (42.2-75.2); PLATELET COUNT (AUTO) 174 K/uL (140-450); RED BLOOD CELL COUNT(AUTO) 5.35 MIL/uL (4.20-5.40)
[2023-03-04] MEDS: INSULIN LISPRO SLIDING SCALE 100 UNITS/ML VIAL SUBQ PRN ×4 (06:55→22:30)
[2023-03-04 07:19] LABS: ANION GAP 14.3 (8-16); CALCIUM 9.3 mg/dL (8.5-10.1); CREATININE 0.5 mg/dL (0.6-1.3); POTASSIUM 3.3 mmol/L (3.5-5.1)
[2023-03-04 08:00] VITALS: RESP 20; O2SAT 99
[2023-03-04] MEDS: TAMSULOSIN 0.4 MG CAP PO SCH (08:30)
[2023-03-04] MEDS: DULoxetine 30 MG CAPDR PO SCH (09:00)
[2023-03-04] MEDS: DOCUSATE SODIUM 100 MG GELCAP PO SCH ×3 (09:00→22:25)
[2023-03-04] MEDS: ENOXAPARIN 40 MG/0.4 ML SYR SUBQ SCH (09:46)
[2023-03-04] MEDS ORDERED: POTASSIUM CHLORIDE 40 MEQ, LIDOCAINE 1% 25 MG in NACL 0.9% 250 ML IV SCH (10:00)
[2023-03-04] MEDS: ERYTHROMYCIN 250 MG in NACL 0.9% 100 ML IV SCH (18:56)
[2023-03-04 20:00] VITALS: BP 124/57; PULSE 76; RESP 18; TEMP 98.3; O2SAT 98; O2SAT 99
[2023-03-05] MEDS: METOCLOPRAMIDE 10 MG/2 ML INJ VIAL IVP SCH ×3 (00:27→14:01)
[2023-03-05] MEDS: ERYTHROMYCIN 250 MG in NACL 0.9% 100 ML IV SCH ×3 (00:27→14:01)
[2023-03-05] MEDS: cephALEXin 500 MG CAP PO SCH ×4 (00:28→12:00)
[2023-03-05 04:00] VITALS: BP 148/84; PULSE 99; RESP 18; TEMP 98.8; O2SAT 99
[2023-03-05] MEDS: BLOOD GLUCOSE MONITORING 1 DEV DEV FS SCH ×3 (06:42→16:27)
[2023-03-05] MEDS: INSULIN LISPRO SLIDING SCALE 100 UNITS/ML VIAL SUBQ PRN (06:42)
[2023-03-05 08:00] VITALS: RESP 19; O2SAT 98
[2023-03-05] MEDS ORDERED: MIDAZOLAM 5 MG/5 ML VIAL ONE (08:14)
[2023-03-05] MEDS ORDERED: fentaNYL citrate 0.05 MG/ML VIAL ONE (08:14)
[2023-03-05] MEDS: TAMSULOSIN 0.4 MG CAP PO SCH (08:30)
[2023-03-05] MEDS: DULoxetine 30 MG CAPDR PO SCH (09:00)
[2023-03-05] MEDS: DOCUSATE SODIUM 100 MG GELCAP PO SCH (09:00)
[2023-03-05] MEDS ORDERED: MIDAZOLAM 2 MG/2 ML VIAL IVP ONE (09:55)
[2023-03-05] MEDS ORDERED: fentaNYL citrate 0.05 MG/ML VIAL IVP ONE (09:55)
[2023-03-05 12:00] VITALS: BP 110/57; PULSE 95; RESP 18; TEMP 97.4; O2SAT 98
[2023-03-05] MEDS ORDERED: OMEP20TC PO (17:00)
[2023-03-05] MEDS ORDERED: SUCR1SUS7 PO (17:01)
[2023-03-05] MEDS ORDERED: ONDA-188 PO (17:02)
[2023-03-05 17:20] VITALS: BP 117/70; PULSE 102; RESP 18; TEMP 96.8
== END 2023-03-05 18:23 | disposition home or self-care (01) | DRG 74 ==
LOC: MED 10:48 → MTU 18:37 → OBSVTOIN 18:37 → MTU 20:01
PROVIDERS: ADMIT Internal Medicine; ATTEND Internal Medicine
PROC: 0DB78ZX Excision of Stomach, Pylorus, Via Natural or Artificial Opening Endoscopic, Diagnostic (ICD-10-PCS; 2023-03-05)
PROC: 0DB68ZX Excision of Stomach, Via Natural or Artificial Opening Endoscopic, Diagnostic (ICD-10-PCS; 2023-03-05)
PROC: 0DB48ZX Excision of Esophagogastric Junction, Via Natural or Artificial Opening Endoscopic, Diagnostic (ICD-10-PCS; principal; 2023-03-05 08:20)
DX: E11.43 Type 2 diabetes mellitus with diabetic autonomic (poly)neuropathy (principal); Z68.41 Body mass index [BMI] 40.0-44.9, adult; K22.70 Barrett's esophagus without dysplasia; K29.70 Gastritis, unspecified, without bleeding; K59.00 Constipation, unspecified; E87.6 Hypokalemia; E66.01 Morbid (severe) obesity due to excess calories; E11.8 Type 2 diabetes mellitus with unspecified complications; J45.909 Unspecified asthma, uncomplicated; I10 Essential (primary) hypertension; K31.84 Gastroparesis; N20.0 Calculus of kidney; K21.00 Gastro-esophageal reflux disease with esophagitis, without bleeding; Z88.5 Allergy status to narcotic agent; Z91.041 Radiographic dye allergy status; Z79.82 Long term (current) use of aspirin; Z79.84 Long term (current) use of oral hypoglycemic drugs; Z79.899 Other long term (current) drug therapy; Z85.41 Personal history of malignant neoplasm of cervix uteri
CPT/HCPCS: 36415; 74018; 76770; 80048; 80053; 80305; 81001; 82948; 83690; 83735; 84484; 85025; 87081; 87086; 88305; 88312; 88313; 88342; 93005; 96374; 96375; 99285; C9113; J1364; J1630; J1650; J1815; J1885; J2001; J2250; J2270; J2405; J2765; J3010; J3480; J7030; Q0092